=== PATIENT | male | born 1965 | race Caucasian/White ===

== ENCOUNTER 2017-05-16 13:35 | Emergency (ER) | payer BC ==
[2017-05-16 13:48] VITALS: TEMP 97.9; BMI 30.9
[2017-05-16] MEDS ORDERED: ONDANSETRON 4 MG/2 ML VIAL IVPUSH ONE (14:18)
[2017-05-16] MEDS ORDERED: diazePAM CARPU-JECT 10 MG/2 ML DISP.SYRIN IVPUSH ONE (14:20)
[2017-05-16] MEDS ORDERED: SODIUM CHLORIDE 0.9% 1000 ML INFUS.BAG IV ONE (14:22)
[2017-05-16] MEDS ORDERED: ONDANSETRON 4 MG/2 ML VIAL ONE (14:29)
[2017-05-16] MEDS ORDERED: diazePAM CARPU-JECT 10 MG/2 ML DISP.SYRIN ONE (14:29)
--- NOTE | 2017-05-16 14:36 | PDOC ---
History of Present Illness - General History Source: Patient Exam Limitations: No Limitations - History of Present Illness Initial Comments: 05/16/17 14:25 The patient is a 51 M who presents extreme dizziness secondary to vertigo. He was vomiting when I was talking to him. He could not provide a history besides the fact that he has vertigo and this feels like the vertigo that he has. <Spike Clemente - Last Filed: 05/16/17 14:43> <Harshad Moulton - Last Filed: 05/16/17 18:50> - General Chief Complaint: Lightheaded Stated Complaint: VERTIGO Time Seen by Provider: 05/16/17 14:12 Past History - Past Medical History HTN: Yes Suicide Attempt (Hx): No - Immunization History Immunization Up to Date: Yes - Psycho/Social/Smoking Cessation Hx Anxiety: No Suicidal Ideation: No Smoking Status: No Smoking History: Never smoked Have you smoked in the past 12 months: No Number of Cigarettes Smoked Daily: 0 Information on smoking cessation initiated: No Hx Alcohol Use: No Drug/Substance Use Hx: No Substance Use Type: None <Spike Clemente - Last Filed: 05/16/17 14:43> <Harshad Moulton - Last Filed: 05/16/17 18:50> - Past Medical History Allergies/Adverse Reactions: Allergies Allergy/AdvReac Type Severity Reaction Status Date / Time No Known Allergies Allergy Verified 05/16/17 13:43 Home Medications: Ambulatory Orders Topiramate [Topamax] 50 mg PO DAILY 11/29/12 Valsartan/Hydrochlorothiazide [Diovan Hct 160-12.5 mg Tablet -] 1 combo PO DAILY 11/29/12 Diazepam [Valium] 5 mg PO TID PRN #14 tablet 12/25/15 Meclizine HCl [Antivert -] 50 mg PO TID PRN #21 tablet 12/25/15 Naproxen [Naprosyn -] 500 mg PO BID #14 tablet 09/26/16 Diazepam [Valium] 2 mg PO TID PRN #60 tablet MDD 6 05/16/17 Pantoprazole Sodium 40 mg PO DAILY 05/16/17 Review of Systems - Review of Systems Able to Perform ROS?: No (vomiting) Is the patient limited Liberian proficient: No <Spike Clemente - Last Filed: 05/16/17 14:43> *Physical Exam - Vital Signs Last Vital Signs Temp Pulse Resp BP Pulse Ox 97.9 F 115 H 16 181/109 100 05/16/17 13:43 05/16/17 13:43 05/16/17 13:43 05/16/17 13:43 05/16/17 13:43 <Spike Clemente - Last Filed: 05/16/17 14:43> - Vital Signs Last Vital Signs Temp Pulse Resp BP Pulse Ox 97.9 F 93 H 20 116/60 99 05/16/17 13:43 05/16/17 17:38 05/16/17 17:38 05/16/17 17:38 05/16/17 17:38 <Harshad Moulton - Last Filed: 05/16/17 18:50> Heart Score/ECG Review - ECG Intrepretation Rhythm: Regular Rhythm - Southold Southold: Normal - QRS Widened: RBBB - ECG Impressions Ischemic Changes: No Bradycardia: No <Spike Clemente - Last Filed: 05/16/17 14:43> ED Treatment Course - LABORATORY CBC & Chemistry Diagram: 05/16/17 14:40 05/16/17 14:40 - ADDITIONAL ORDERS Additional order review: Laboratory Results 05/16/17 14:40 Sodium 142 Potassium 3.8 Chloride 111 H Carbon Dioxide 23 Anion Gap 8 BUN 17 D Creatinine 1.1 Creat Clearance w eGFR > 60 Random Glucose 131 H D Calcium 8.6 Total Bilirubin 0.3 D AST 12 L ALT 27 Alkaline Phosphatase 98 Total Protein 7.3 Albumin 3.9 05/16/17 14:40 RBC 4.75 MCV 88.7 MCHC 33.6 RDW 13.7 MPV 6.9 L - Medications Given in the ED: ED Medications Discontinued Medications Generic Name Dose Route Start Last Admin Trade Name Freq PRN Reason Stop Dose Admin Diazepam 5 mg 05/16/17 14:20 05/16/17 14:35 Valium Injection - IVPUSH 05/16/17 14:21 5 mg ONCE ONE Administration Metoclopramide HCl 10 mg 05/16/17 14:59 05/16/17 15:15 Reglan Injection - IVPUSH 05/16/17 15:00 10 mg ONCE ONE Administration Ondansetron HCl 4 mg 05/16/17 14:18 05/16/17 14:35 Zofran Injection IVPUSH 05/16/17 14:19 4 mg ONCE ONE Administration Sodium Chloride 1,000 ml 05/16/17 14:22 05/16/17 14:35 Normal Saline - IV 05/16/17 14:23 1,000 ml ONCE ONE Administration <Harshad Moulton - Last Filed: 05/16/17 18:50> *DC/Admit/Observation/Transfer <Spike Clemente - Last Filed: 05/16/17 14:43> - Discharge Dispostion Admit: No <Harshad Moulton - Last Filed: 05/16/17 18:50> Diagnosis at time of Disposition: Benign positional vertigo Qualifiers: Laterality: unspecified laterality Qualified Code(s): H81.10 - Benign paroxysmal vertigo, unspecified ear - Discharge Dispostion Disposition: HOME Condition at time of disposition: Improved - Referrals Referrals: Terry German MD [Staff Physician] - - Patient Instructions Printed Discharge Instructions: DI for Vertigo Additional Instructions: Return to the emergency department immediately with ANY new, persistent or worsening symptoms including any headache, vision changes, difficulty with speech, numbness, tingling, weakness, difficulty ambulating, fevers, chills, neck pain or any other concerns. Take your meclizine for vertigo if that does not help he may try the Valium. Do not go to work or drive while you had vertigo. You MUST call and follow up with your doctor tomorrow for further evaluation of your symptoms. Results were discussed with you. Please make sure your doctor reviews the results of your emergency evaluation. If you had any xrays during your visit, it was read preliminarily by myself, a Radiologist will review it and if there are any additional findings we will call you. Print Language: IVORIAN
[2017-05-16 14:56] LABS: MCH 29.8 pg (25.7-33.7); MCHC 33.6 g/dl (32.0-35.9); MEAN CELL VOLUME 88.7 fl (80-96); MEAN PLT VOLUME 6.9 fl (7.5-11.1); PLATELET COUNT 233 K/MM3 (134-434); RDW 13.7 % (11.9-15.9); WHITE BLOOD COUNT 10.5 K/mm3 (4.0-10.0)
[2017-05-16] MEDS ORDERED: METOCLOPRAMIDE HCL INJECTION 10 MG/2 ML VIAL IVPUSH ONE (14:59)
[2017-05-16] MEDS ORDERED: METOCLOPRAMIDE HCL INJECTION 10 MG/2 ML VIAL ONE (15:01)
--- NOTE | 2017-05-16 15:07 | PDOC ---
Attending Attestation - Resident Resident Name: Spike Clemente - ED Attending Attestation I have performed the following: I have examined & evaluated the patient, The case was reviewed & discussed with the resident, I agree w/resident's findings & plan, Exceptions are as noted - HPI HPI: 05/16/17 18:50 51y M hx of veritgo presents with severe vertigo since approximately 1 hr prior to arrival associated with nauasae and vomiting, no associated vision changes, double vision, dysarthria, numbnes, tingilng, weakness, pt does have mild headache this morning. The vetigo was very severe and worse with head movements , but improved with rest. asociated with nausea. nO associated enck pain, recent trauma. Pt notes sypmtoms similar to previous episodes but more severe. Physical Exam GENERAL: The patient is awake, alert, and fully oriented, uncomfortable appearing, intermittent vomiting/heaving HEAD: Normocephalic, atraumatic. EYES: extraocular movements intact, sclera anicteric, conjunctiva clear. ENT: Normal voice, dry mucous membranes. NECK: Normal range of motion, supple LUNGS: Breath sounds equal, clear to auscultation bilaterally. No wheezes, no rhonchi, no rales. HEART: slightly tachcyardic ABDOMEN: Soft, nontender, normoactive bowel sounds. No guarding, no rebound. . No CVA tenderness EXTREMITIES: Normal range of motion, no edema. No clubbing or cyanosis. No cords, erythema, or tenderness. PSYCH: Normal mood, normal affect. SKIN: Warm, Dry, normal turgor, NEURO: Mental status: The patient is oriented x3. Cranial nerves: Cranial nerves II through XII are intact Motor: The upper extremities are 5 over 5 grossly. The lower extremities are 5 over 5 grossly. Negative pronator drift Sensation: Sensation is intact to light touch throughout. romberg negative Cerebellar: Wofrep-cxfbje-xhmq is normal in both upper extremities. Heel-knee- montero is normal in both lower extremities. rapid alternating movements are normal. Reflexes: 2+ and symmetric in the upper and lower extremities. Gait: Normal and nonataxic pt feeling significantly improved after valium, fluid hydration ekg/labs reviewed ambulating with a normal gait will dc the pt with pmd and neuro follow up will give rx for valium and meclizine not substantially improving symptoms no work until symptoms resolved and he follows up with pmd and neurologist(dr. grissom) - Physicial Exam PE: 05/17/17 07:39 see above - Medical Decision Making 05/17/17 07:39 see above Heart Score/ECG Review - ECG Impressions Comment:: 05/16/17 18:53 Twelve-lead EKG was performed and reviewed by me. There is normal sinus rhythm with a normal rate. Rate of 89 The axis is normal. The intervals are normal. There is normal R wave progression Nonspecific T-wave inversion in lead 3
[2017-05-16 15:21] LABS: ALBUMIN 3.9 g/dl (3.4-5.0); ANION GAP 8 (8-16); CALCIUM 8.6 mg/dL (8.5-10.1); CO2 23 mmol/L (21-32); GLUCOSE,RANDOM 131 mg/dL (74-106)
[2017-05-16 15:24] LABS: ALK PHOS 98 U/L (45-117); BILIRUBIN,TOTAL 0.3 mg/dL (0.2-1.0); CREATININE 1.1 mg/dL (0.7-1.3); SGOT/AST 12 U/L (15-37); SGPT/ALT 27 U/L (12-78); TOT PROT 7.3 g/dl (6.4-8.2)
[2017-05-16 17:39] VITALS: BP 116/60; PULSE 93
--- NOTE | 2017-05-16 17:42 | EKG ---
Test Reason : Blood Pressure : / mmHG Vent. Rate : 089 BPM Atrial Rate : 089 BPM P-R Int : 172 ms QRS Dur : 094 ms QT Int : 356 ms P-R-T Axes : 053 027 006 degrees QTc Int : 433 ms NORMAL SINUS RHYTHM CANNOT RULE OUT ANTERIOR INFARCT , AGE UNDETERMINED ABNORMAL ECG WHEN COMPARED WITH ECG OF 25-DEC-2015 14:50, T WAVE VARIATION Confirmed by ELBA MONROY MD ([id number]) on 05/16/2017 5:42:16 PM Referred By: Confirmed By:ELBA MONROY MD
== END 2017-05-16 19:05 | disposition home or self-care (01) ==
LOC: JER 13:35
PROC: 3E033NZ Introduction of Analgesics, Hypnotics, Sedatives into Peripheral Vein, Percutaneous Approach (ICD-10-PCS; principal; 2017-05-16)
PROC: 3E033GC Introduction of Other Therapeutic Substance into Peripheral Vein, Percutaneous Approach (ICD-10-PCS; 2017-05-16)
PROC: 3E033GC Introduction of Other Therapeutic Substance into Peripheral Vein, Percutaneous Approach (ICD-10-PCS; 2017-05-16)
DX: H81.10 Benign paroxysmal vertigo, unspecified ear (principal)
CPT/HCPCS: 36415; 80053; 85027; 93005; 93010; 99283-25

== ENCOUNTER 2017-06-14 08:44 | Emergency (ER) | payer BC ==
[2017-06-14 08:52] VITALS: BP 135/90; PULSE 60; TEMP 97.5; BMI 31.6
--- NOTE | 2017-06-14 09:09 | PDOC ---
History of Present Illness - General Chief Complaint: Pain Stated Complaint: ABD PAIN Time Seen by Provider: 06/14/17 08:56 - History of Present Illness Initial Comments: 06/14/17 09:08 Pt. is a 51 y/o male with PMH of HTN, vertigo d/t BPPV who presents to the ED c/ o belly button pain. Patient states that his pain started this morning after eating a bran muffin. He states that the pain was nagging and he thought he had gas so he tried to use the restroom. Upon bearing down the pain increased significantly to a 10 out of 10. That he noticed his belly button bulging for approximately 2-3 days. No history of hernia. Denies fevers, chills, malaise, chest pain, shortness of breath, lightheadedness, syncope, nausea, vomiting, diarrhea, constipation, frequency, urgency and hematuria. Past History - Travel Traveled outside of the country in the last 30 days: No Close contact w/someone who was outside of country & ill: No - Past Medical History Allergies/Adverse Reactions: Allergies Allergy/AdvReac Type Severity Reaction Status Date / Time No Known Allergies Allergy Verified 06/14/17 08:52 Home Medications: Ambulatory Orders Topiramate [Topamax] 50 mg PO DAILY 11/29/12 Valsartan/Hydrochlorothiazide [Diovan Hct 160-12.5 mg Tablet -] 1 combo PO DAILY 11/29/12 Meclizine HCl [Antivert -] 50 mg PO TID PRN #21 tablet 12/25/15 Naproxen [Naprosyn -] 500 mg PO BID #14 tablet 09/26/16 Diazepam [Valium] 2 mg PO TID PRN #60 tablet MDD 6 05/16/17 Pantoprazole Sodium 40 mg PO DAILY 05/16/17 Tramadol HCl [Ultram -] 50 mg PO Q6H #5 tablet MDD 2 06/14/17 HTN: Yes Suicide Attempt (Hx): No - Immunization History Immunization Up to Date: Yes - Psycho/Social/Smoking Cessation Hx Anxiety: No Suicidal Ideation: No Smoking Status: No Smoking History: Never smoked Have you smoked in the past 12 months: No Number of Cigarettes Smoked Daily: 0 Information on smoking cessation initiated: No Hx Alcohol Use: No Drug/Substance Use Hx: No Substance Use Type: None Review of Systems - Review of Systems Able to Perform ROS?: Yes Is the patient limited Cymraes proficient: No Constitutional: Yes: Chills. No: Fever, Malaise, Weakness Respiratory: No: Cough, Shortness of Breath, Wheezing Cardiac (ROS): No: Chest Pain, Edema, Lightheadedness, Palpitations, Syncope ABD/GI: Yes: Other (Belly button pain). No: Constipated, Diarrhea, Nausea, Vomiting : No: Burning, Dysuria, Discharge, Frequency, Flank Pain, Hematuria Musculoskeletal: No: Back Pain Neurological: No: Numbness, Paresthesia, Weakness, Dizziness All Other Systems: Reviewed and Negative *Physical Exam - Vital Signs Last Vital Signs Temp Pulse Resp BP Pulse Ox 97.5 F L 60 18 135/90 97 06/14/17 08:50 06/14/17 08:50 06/14/17 08:50 06/14/17 08:50 06/14/17 08:50 - Physical Exam Comments: 06/14/17 09:12 GENERAL: Well developed, well nourished. Awake and alert. No acute distress. HEENT: Normocephalic, atraumatic. PERRLA, EOMI. No conjunctival pallor. Sclera are non- icteric. Moist mucous membranes. Oropharynx is clear. NECK: Supple. Full ROM. No JVD. Carotid pulses 2+ and symmetric, without bruits. No thyromegaly. No lymphadenopathy. CARDIOVASCULAR: Regular rate and rhythm. No murmurs, rubs, or gallops. Distal pulses are 2+ and symmetric. PULMONARY: No evidence of respiratory distress. Lungs clear to auscultation bilaterally. No wheezing, rales or rhonchi. ABDOMINAL: TTP of the umbilical region. Soft, non-reducible umbilical hernia measuring approximately 3cm around. No skin changes. Soft. Non-distended. No rebound or guarding. No organomegaly. Normoactive bowel sounds. MUSCULOSKELETAL Normal range of motion at all joints. No bony deformities or tenderness. No CVA tenderness. EXTREMITIES: No cyanosis. No clubbing. No edema. No calf tenderness. SKIN: Warm and dry. Normal capillary refill. No rashes. No jaundice. NEUROLOGICAL: Alert, awake, appropriate. Cranial nerves 2-12 intact. No deficits to light touch and temperature in face, upper extremities and lower extremities. No motor deficits in the in face, upper extremities and lower extremities. Normoreflexic in the upper and lower extremities. Normal speech. Toes are down- going bilaterally. Gait is normal without ataxia. PSYCHIATRIC: Cooperative. Good eye contact. Appropriate mood and affect. ED Treatment Course - LABORATORY CBC & Chemistry Diagram: 06/14/17 09:40 06/14/17 09:40 Medical Decision Making - Medical Decision Making 06/14/17 09:44 Patient is a 51-year-old male past medical history of hypertension, vertigo who presents to emergency department today complaining of umbilical pain. Given history and physical, most likely an umbilical hernia. Was unable to reduce the hernia in the emergency department. Will do workup for new hernia. 1. CBC, CMP, PT/INR, 2. CT abdomen and pelvis with contrast 3. pain control morphine, Zofran 4. reevaluate 06/14/17 12:42 Pt. reports relief with morphine and states that the hernia feels smaller. CT Scan shows: fat containing umbilical hernia with some necrosis of the fat; could be caused by trying to reduce the hernia. Clinically pt. abdomen is benign. Feeling much better with morphine. Lab work is normal. Will send home at this time with Surgical consult, pain control and weight lift restriction. Pt. understands all discharge instructions and all questions were answered at this time. *DC/Admit/Observation/Transfer Diagnosis at time of Disposition: Incarcerated umbilical hernia - Discharge Dispostion Disposition: HOME Condition at time of disposition: Improved Admit: No - Prescriptions Prescriptions: Tramadol HCl [Ultram -] 50 mg PO Q6H #5 tablet MDD 2 - Referrals Referrals: Terry German MD [Primary Care Provider] - Missael Zapata MD [Staff Physician] - - Patient Instructions Printed Discharge Instructions: Abdominal Hernia Additional Instructions: You have a fat containing hernia as diagnosed on your CT scan today. You may take tramadol as needed for severe pain. Do not drive after taking this medication as it may make you sleepy. Avoid activites that increase pressure in your stomach including heavy lifting, and straining to have a bowel movement. You may take Miralax over the counter to help with stool softening. Follow up with your primary care doctor. You were also given a referral for a surgeon Dr. Missael Dixon. Call the office tomorrow. Return to the ED if your pain gets worse, nausea, vomiting, or any changes in your symptoms. - Post Discharge Activity Work/School Note: Back to Work
[2017-06-14] MEDS ORDERED: morphine CARPU-JECT 4 MG/1 ML DISP.SYRIN IVPUSH ONE (09:38)
[2017-06-14] MEDS ORDERED: ONDANSETRON 4 MG/2 ML VIAL IVPUSH ONE (09:38)
[2017-06-14] MEDS ORDERED: ONDANSETRON 4 MG/2 ML VIAL ONE (09:43)
[2017-06-14] MEDS ORDERED: morphine CARPU-JECT 10 MG/1 ML DISP.SYRIN ONE (09:43)
[2017-06-14 10:11] LABS: BASOPHIL 0.5 % (0-2.0); EOSINOPHIL 0.6 % (0-4.5); MCH 29.7 pg (25.7-33.7); MEAN CELL VOLUME 90.2 fl (80-96); MEAN PLT VOLUME 6.6 fl (7.5-11.1); NEUTROPHILS 81.5 % (42.8-82.8); PLATELET COUNT 204 K/MM3 (134-434); RDW 13.5 % (11.9-15.9); WHITE BLOOD COUNT 8.6 K/mm3 (4.0-10.0)
[2017-06-14 10:20] LABS: INR 0.99 (0.82-1.09); PROTHROMBIN TIME (PATIENT) 10.9 SEC (9.98-11.88)
[2017-06-14 10:24] LABS: ANION GAP 8 (8-16); BILIRUBIN,TOTAL 0.6 mg/dL (0.2-1.0); CALCIUM 8.7 mg/dL (8.5-10.1); CO2 23 mmol/L (21-32); GLUCOSE,RANDOM 115 mg/dL (74-106); SGPT/ALT 27 U/L (12-78)
[2017-06-14 10:27] LABS: ALK PHOS 96 U/L (45-117); CREATININE 1.1 mg/dL (0.7-1.3); SGOT/AST 15 U/L (15-37); TOT PROT 7.1 g/dl (6.4-8.2)
--- NOTE | 2017-06-14 10:33 | PDOC ---
*Physical Exam - Vital Signs Last Vital Signs Temp Pulse Resp BP Pulse Ox 97.5 F L 60 18 135/90 97 06/14/17 08:50 06/14/17 08:50 06/14/17 08:50 06/14/17 08:50 06/14/17 08:50 - Physical Exam Comments: 06/14/17 10:31 Vital signs stable, well-appearing Abdomen soft/nondistended/nontender. Umbilical hernia now reduced, palpable defect but no longer incarcerated. Bowel sounds normal. ED Treatment Course - LABORATORY CBC & Chemistry Diagram: 06/14/17 09:40 06/14/17 09:40 - ADDITIONAL ORDERS Additional order review: Laboratory Results 06/14/17 09:40 Sodium 142 Potassium 3.9 Chloride 111 H Carbon Dioxide 23 Anion Gap 8 BUN 23 H D Creatinine 1.1 Creat Clearance w eGFR > 60 Random Glucose 115 H Calcium 8.7 Total Bilirubin 0.6 D AST 15 D ALT 27 Alkaline Phosphatase 96 Total Protein 7.1 Albumin 4.0 06/14/17 09:40 RBC 4.79 MCV 90.2 MCHC 33.0 RDW 13.5 MPV 6.6 L Neutrophils % 81.5 Lymphocytes % 12.5 D Monocytes % 4.9 Eosinophils % 0.6 D Basophils % 0.5 - Medications Given in the ED: ED Medications Discontinued Medications Generic Name Dose Route Start Last Admin Trade Name Davidq PRN Reason Stop Dose Admin Morphine Sulfate 4 mg 06/14/17 09:38 06/14/17 10:00 Morphine Injection - IVPUSH 06/14/17 09:39 4 mg ONCE ONE Administration Ondansetron HCl 4 mg 06/14/17 09:38 06/14/17 10:00 Zofran Injection IVPUSH 06/14/17 09:39 4 mg ONCE ONE Administration Medical Decision Making - Medical Decision Making 06/14/17 10:31 Patient seen and evaluated with the nurse practitioner. I agree with the overall evaluation, assessment, and management with the following summary of visit: 51-year-old male with no significant past medical history or surgical history presents with incarcerated hernia, now spontaneously reduced after morphine and lying on stretcher. Abdomen was benign, no obstructive symptoms. Check labs and CTAP given duration of incarceration Remains asymptomatic with normal exam and negative workup, can refer for outpatient general surgery *DC/Admit/Observation/Transfer Diagnosis at time of Disposition: Irreducible umbilical hernia - Discharge Dispostion Condition at time of disposition: Improved
== END 2017-06-14 13:53 | disposition home or self-care (01) ==
LOC: JER 08:44
PROC: 3E033GC Introduction of Other Therapeutic Substance into Peripheral Vein, Percutaneous Approach (ICD-10-PCS; principal; 2017-06-14)
PROC: 3E033NZ Introduction of Analgesics, Hypnotics, Sedatives into Peripheral Vein, Percutaneous Approach (ICD-10-PCS; 2017-06-14)
DX: K42.9 Umbilical hernia without obstruction or gangrene (principal); I10 Essential (primary) hypertension
CPT/HCPCS: 36415; 74177-TC; 80053; 85025; 85610; 99283-25

== ENCOUNTER 2017-06-22 18:07 | Emergency (ER) | payer BC ==
[2017-06-22 18:15] VITALS: BP 160/98; PULSE 83; TEMP 98; BMI 31.6
[2017-06-22] MEDS ORDERED: MECLIZINE HCL 25 MG TABLET (FP) PO ONE (19:05)
[2017-06-22] MEDS ORDERED: diazePAM 5 MG TABLET PO ONE (19:06)
[2017-06-22] MEDS ORDERED: SODIUM CHLORIDE 1,000 ML IV STA (19:07)
[2017-06-22] MEDS ORDERED: ONDANSETRON 4 MG/2 ML VIAL IVPUSH ONE (19:07)
[2017-06-22] MEDS ORDERED: MECLIZINE HCL 25 MG TABLET (FP) ONE ×2 (19:13→19:34)
[2017-06-22] MEDS ORDERED: diazePAM 5 MG TABLET ONE ×2 (19:13→19:34)
--- NOTE | 2017-06-22 19:15 | PDOC ---
History of Present Illness - General Chief Complaint: Lightheaded Stated Complaint: DIZZINESS Time Seen by Provider: 06/22/17 18:47 History Source: Patient Exam Limitations: No Limitations - History of Present Illness Initial Comments: This is a 51 yo male with h/o BPPV and umbilical hernia (to be repaired on ) who presents with vertigo typical of his normal flares. He notes room- spinning dizziness and nausea. He took meclizine 25 mg PO at home without relief. He has not vomited yet, but expresses concern that his nausea is getting worse and if he does vomit, it frequently causes his umbilical hernia to come out. He denies any recent headache, cough, sore throat, runny nose, chest pain, shortness of breath, fever, chills, or other symptoms. He has never had a head CT for this. He was first diagnosed with vertigo four years ago after sneezing very forcefully (he was told he had whiplash). Past History - Past Medical History Allergies/Adverse Reactions: Allergies Allergy/AdvReac Type Severity Reaction Status Date / Time No Known Allergies Allergy Verified 06/22/17 18:15 Home Medications: Ambulatory Orders Topiramate [Topamax] 50 mg PO DAILY 11/29/12 Valsartan/Hydrochlorothiazide [Diovan Hct 160-12.5 mg Tablet -] 1 combo PO DAILY 11/29/12 Meclizine HCl [Antivert -] 50 mg PO TID PRN #21 tablet 12/25/15 Naproxen [Naprosyn -] 500 mg PO BID #14 tablet 09/26/16 Diazepam [Valium] 2 mg PO TID PRN #60 tablet MDD 6 05/16/17 Pantoprazole Sodium 40 mg PO DAILY 05/16/17 Tramadol HCl [Ultram -] 50 mg PO Q6H #5 tablet MDD 2 06/14/17 GI Disorders: Yes HTN: Yes Suicide Attempt (Hx): No Other medical history: VERTIGO, MIGRAINES - Immunization History Immunization Up to Date: Yes - Psycho/Social/Smoking Cessation Hx Anxiety: No Suicidal Ideation: No Smoking Status: No Smoking History: Never smoked Have you smoked in the past 12 months: No Number of Cigarettes Smoked Daily: 0 Information on smoking cessation initiated: No Hx Alcohol Use: No Drug/Substance Use Hx: No Substance Use Type: None *Physical Exam - Vital Signs Last Vital Signs Temp Pulse Resp BP Pulse Ox 98 F 83 18 160/98 98 06/22/17 18:12 06/22/17 18:12 06/22/17 18:12 06/22/17 18:12 06/22/17 18:12 Medical Decision Making - Medical Decision Making This is a 51 YOM with h/o BPPV who presents with vertigo flare same as prior. Pt states incident was preceded by washing his hair and shaking his head too hard. Has previously gotten relief with PO valium, meclizine, Zofran here in the ED. States IVF usually helps significantly too. DDX includes BPPV, meniere's, post-viral, or central vertigo. Pt has never been worked up for his vertigo per his own report. Head CT is offered to the patient via shared decision making but 06/22/17 19:40 Pt feeling much better after valium, meclizine, and zofran. He has been able to orally hydrate thus far and will try to avoid IV placement for IVF. *DC/Admit/Observation/Transfer Diagnosis at time of Disposition: Vertigo - Discharge Dispostion Disposition: HOME Condition at time of disposition: Stable Admit: No - Patient Instructions Printed Discharge Instructions: DI for Benign Paroxysmal Positional Vertigo Additional Instructions: You were seen in the emergency room today for vertigo. We gave you three types of pills: Valium, Meclizine, and Zofran. These started working for you, especially after drinking water and eating a little bit. We are comfortable with sending you home tonight because your symptoms are better. Please follow up with Neurology after your upcoming hernia surgery. We are sending an e- prescription for Valium to your pharmacy. Please take this and 50 mg of meclizine the next time you get vertigo and see if this works. You can always return to the emergency room for new or worsening symptoms like headache or vomiting that you can't control. Be well!
[2017-06-22] MEDS ORDERED: ONDANSETRON *ODT* 4 MG TABLET SL ONE (19:16)
[2017-06-22] MEDS ORDERED: ONDANSETRON *ODT* 4 MG TABLET ONE (19:17)
--- NOTE | 2017-06-22 19:22 | PDOC ---
Attending Attestation - Resident Resident Name: MalickMisty - ED Attending Attestation I have performed the following: I have examined & evaluated the patient, The case was reviewed & discussed with the resident, I agree w/resident's findings & plan, Exceptions are as noted - HPI HPI: 06/22/17 19:22 This is a 51 yo M with a history of BPPV Pt states that he has had this diagnosis for the past 4 years, began after he sneezed forcefully Pt states that he has used Meclizine in the past, tried it this time but it did not improve his symptoms No headache No fevers or chills No nausea or vomiting - Physicial Exam PE: 06/22/17 19:29 NEURO: Mental status: The patient is oriented x3. Cranial nerves: Cranial nerves II through XII are intact Motor: The upper extremities are 5 over 5 in all muscle groups. The lower extremities are 5 over 5 in all muscle groups. Sensation: Sensation is intact to light touch throughout. Cerebellar: Bsajgg-orwrxm-sfes is normal in both upper extremities. Heel-knee- montero is normal in both lower extremities. Gait: Normal. - Medical Decision Making 06/22/17 19:30 Will give Valium, IVF, Zofran Will re assess ? CT 06/22/17 20:02 Pt feels better Will discharge to home
== END 2017-06-22 20:08 | disposition home or self-care (01) ==
LOC: JER 18:07
DX: H81.10 Benign paroxysmal vertigo, unspecified ear (principal); I10 Essential (primary) hypertension; G43.909 Migraine, unspecified, not intractable, without status migrainosus
CPT/HCPCS: 99282-25

== ENCOUNTER 2017-07-04 06:17 | Day surgery (SDC) | payer BC ==
[2017-06-30 15:26] VITALS: BMI 32.5
[~2017-07-04 06:17] MED LIST: BUPIVACAINE HCL/PF 0.5% (5MG/ML) 10 ML VIAL IJ ONE; LIDOCAINE HCL 1%, 10 MG/ML (20ML VIAL) INF ONE
[2017-07-04] MEDS ORDERED: ACETAMINOPHEN INJECTION 100 ML IVPB ONE (07:17)
[2017-07-04] MEDS ORDERED: IBUPROFEN 800 MG/8 ML IJ IVPB ONE (07:17)
[2017-07-04] MEDS ORDERED: BUPIVACAINE HCL/PF 0.5% (5MG/ML) 10 ML VIAL ONE (07:23)
[2017-07-04] MEDS ORDERED: MIDAZOLAM HCL 2 MG/2 ML SINGLE DOSE VIAL ONE ×2 (07:25)
[2017-07-04] MEDS ORDERED: DESFLURANE GAS 240 ML BOTTLE IH ONE (07:42)
[2017-07-04] MEDS ORDERED: PROPOFOL 20 ML ONE ×2 (07:48)
[2017-07-04] MEDS ORDERED: SUCCINYLCHOLINE CHLORIDE 200 MG/10 ML VIAL ONE (07:48)
[2017-07-04] MEDS ORDERED: ROCURONIUM BROMIDE 50 MG/5 ML VIAL ONE ×2 (07:49)
[2017-07-04] MEDS ORDERED: ceFAZolin SODIUM 1 GM VIAL ONE (07:50)
[2017-07-04] MEDS ORDERED: SODIUM CHLORIDE 0.9% P/F 10 ML VIAL IJ ONE (07:50)
[2017-07-04] MEDS ORDERED: DEXAMETHASONE SOD PHOSPHATE 4 MG/1 ML VIAL ONE (07:50)
--- NOTE | 2017-07-04 08:04 | HP ---
History & Physical Update - History History: No Change - Physical Physical: No Change - Assessment Assessment: No Change - Plan Plan: No Change (Repair umbilical hernia; r/b/t/a/'s d/w the patient pre-op in the office; recurrence d/w him as well.)
[2017-07-04] MEDS ORDERED: LIDOCAINE HCL 1%, 10 MG/ML (20ML VIAL) ONE (08:13)
[2017-07-04] MEDS ORDERED: GLYCOPYRROLATE 0.2 MG/1 ML VIAL ONE (08:53)
[2017-07-04] MEDS ORDERED: NEOSTIGMINE METHYLSULFATE 0.5 MG/ML - 10 ML MDV ONE (08:53)
[2017-07-04] MEDS ORDERED: BUPIVACAINE HCL/PF 0.5% (5MG/ML) 10 ML VIAL IJ ONE (09:15)
[2017-07-04] MEDS ORDERED: LIDOCAINE HCL 1%, 10 MG/ML (20ML VIAL) INF ONE (09:15)
[2017-07-04] MEDS ORDERED: LIDOCAINE HCL/PF 2% SDV 5ML VIAL ONE (09:23)
[2017-07-04] MEDS ORDERED: ONDANSETRON 4 MG/2 ML VIAL IVPUSH PRN (09:49)
[2017-07-04] MEDS ORDERED: PROMETHAZINE HCL 25 MG/1 ML VIAL IVPUSH PRN (09:49)
[2017-07-04] MEDS ORDERED: oxyCODONE HCL 5 MG TABLET PO PRN (09:49)
--- NOTE | 2017-07-04 09:53 | OP ---
Operative Note - Note: Operative Date: 07/04/17 Pre-Operative Diagnosis: umbilical hernia Operation: repair umbilical hernia Findings: 2.0 cm. defect at the umbilicus containing pre-peritoneal fat. Surgeon: Missael Zapata Anesthesiologist/SERVICE CENTER MANAGER: Osman Guerra Anesthesia: General Specimens Removed: hernia sac and preperitoneal fat Estimated Blood Loss (mls): 10
[2017-07-04] MEDS ORDERED: LACTATED RINGERS SOLUTION 1,000 ML IV SCH (10:00)
[2017-07-04 10:52] VITALS: TEMP 97.7
[2017-07-04] MEDS ORDERED: oxyCODONE HCL 5 MG TABLET ONE (11:29)
[2017-07-04 12:26] VITALS: BP 129/81; PULSE 79
--- NOTE | 2017-07-05 13:21 | PATH ---
Surgical Pathology Report Patient Name: KANNAN [facility]. Rec. #: [id number] /Age/Gender: 1965 (Age: 51) / M Account: [id number] Location: [facility] SURGICAL Taken: 07/04/2017 Received: 07/04/2017 Reported: 07/05/2017 Physicians: Missael Zapata MD Specimen(s) Received HERNIA SAC Clinical History Umbilical hernia Final Diagnosis HERNIA SAC, UMBILICAL HERNIA REPAIR: BENIGN FOCALLY MESOTHELIAL LINED FIBROMEMBRANOUS AND FIBROFATTY TISSUE WITH VASCULAR CONGESTION AND FOCAL HEMORRHAGE CONSISTENT WITH HERNIA SAC. Electronically Signed Geovany Bustillos M.D. Gross Description Received in formalin labeled "hernia sac" is a 4.4 x 3.6 x 2.0 cm ricci-pink, irregular portion of fibromembranous tissue with attached fat, consistent with a hernia sac. Tailings Man sections are submitted in one cassette. /07/04/2017 [facility]07/04/2017
--- NOTE | 2017-07-06 13:40 | OP ---
DATE OF OPERATION: 07/04/2017 PREOPERATIVE DIAGNOSIS: Umbilical hernia. POSTOPERATIVE DIAGNOSIS: Umbilical hernia. PROCEDURE: Repair of umbilical hernia. SURGEON: Missael Zapata MD ANESTHESIA: General. OPERATIVE FINDINGS: There was a 2-cm defect at the umbilicus containing non-incarcerated preperitoneal fat. The rest of the findings were unremarkable. DESCRIPTION OF PROCEDURE: The patient was placed on the operating table in supine position, and after the induction of general anesthesia, the patients abdomen was prepped with ChloraPrep and draped in sterile fashion. A time-out was taken, and an infraumbilical incision was made from the 3 to 9 o'clock position using the scalpel. This was taken down through skin and subcutaneous tissues to the abdominal wall. The umbilical stalk was then bluntly encircled, and the umbilicus dissected off the sac. The sac was then entered, and redundant sac and preperitoneal fat were excised using electrocautery and sent for pathological examination. The undersurface of the abdominal wall was freed of any adhesions, and then, the hernia was repaired using multiple 0 Prolene horizontal mattress sutures. Hemostasis was checked for and noted to be good, and then, the wound was copiously irrigated with sterile saline. The operative field was infiltrated with 1% Xylocaine and 0.5% Marcaine in equal concentration. Hemostasis was again verified, and then, the umbilicus was tacked down to the abdominal wall with interrupted 2-0 Vicryl, and the deep dermis reapproximated with interrupted 3-0 Vicryl, and the skin edges with surgical simon. Telfa and dry sterile dressings were placed, and the procedure was terminated at this point, and the patient roused from general anesthesia and transferred to the post-anesthesia care unit in stable condition, awake and alert. ESTIMATED BLOOD LOSS: 10 mL. REPLACEMENTS: Crystalloid. DRAINS: None. SPECIMENS: Hernia sac and preperitoneal fat to Pathology. I, Missael Zapata, was physically present in the operating room from the time the patient was placed on the operating table until he was transferred to the post-anesthesia care unit in my accompaniment. MD ANCA Aguirre/[id number]
== END 2017-07-04 12:28 | disposition home or self-care (01) ==
LOC: JASU-SURG 06:17
PROVIDERS: ATTEND Surgery
PROC: 0WQF0ZZ Repair Abdominal Wall, Open Approach (ICD-10-PCS; principal; 2017-07-04 08:00)
DX: K42.9 Umbilical hernia without obstruction or gangrene (principal)
CPT/HCPCS: 88302-TC; 94010; 94760

== ENCOUNTER 2018-02-25 08:06 | Emergency (ER) | payer BC ==
[2018-02-25 08:13] VITALS: BP 126/82; PULSE 96; TEMP 97.8; BMI 34.2
--- NOTE | 2018-02-25 08:26 | PDOC ---
History of Present Illness - General Chief Complaint: Lightheaded Stated Complaint: RINGING IN LEFT EAR, DIZZINESS Time Seen by Provider: 02/25/18 08:25 - History of Present Illness Initial Comments: 02/25/18 08:31 Mr. Young is a 52 yo male w/ pmh of BPPV and umbilical hernia (repaired) who presents w/ complaints of dizziness since Tuesday. He reports this started after he was on [place] and has persisted despite attempting to take 1/2 of his usual meclizine dose at 0700 this morning. He has also taken a 2mg diazepam as well for associated nausea. He has no other complaints at this time. Patient followed by Dr. Sweet for this problem. The patient denies chest pain, shortness of breath,and headache. Denies fever, chills, nausea, vomit, diarrhea and constipation. Denies dysuria, frequency, urgency and hematuria. Allergies: NKDA Past History - Past Medical History Allergies/Adverse Reactions: Allergies Allergy/AdvReac Type Severity Reaction Status Date / Time No Known Allergies Allergy Verified 02/25/18 08:09 Home Medications: Ambulatory Orders Topiramate [Topamax] 50 mg PO HS 11/29/12 Meclizine HCl [Antivert -] 50 mg PO TID PRN #21 tablet 12/25/15 Hydrochlorothiazide [Hctz -] 25 mg PO DAILY 06/30/17 Pantoprazole Sodium [Protonix] 40 mg PO HS 06/30/17 Valsartan [Diovan] 80 mg PO HS 06/30/17 Acetaminophen W/ Codeine #3 [Tylenol # 3 -] 1 tab PO Q4H #30 tablet MDD 6 Diazepam [Valium] 2 mg PO PRN PRN 07/04/17 Ondansetron [Zofran *Odt*] 8 mg SL BID PRN #10 od.tablet 02/25/18 Anemia: No Asthma: Yes Cancer: No Cardiac Disorders: No CVA: No COPD: No CHF: No Dementia: No Diabetes: No GI Disorders: Yes Disorders: No HTN: Yes Hypercholesterolemia: No Liver Disease: No Seizures: No Thyroid Disease: No Other medical history: migraines,miniere's disease - Immunization History Immunization Up to Date: Yes - Suicide/Smoking/Psychosocial Hx Smoking Status: No Smoking History: Never smoked Have you smoked in the past 12 months: No Number of Cigarettes Smoked Daily: 0 Information on smoking cessation initiated: No Hx Alcohol Use: No Drug/Substance Use Hx: No Substance Use Type: None Hx Substance Use Treatment: No Review of Systems - Review of Systems Comments:: 02/25/18 09:15 GENERAL/CONSTITUTIONAL: No fever or chills. No weakness. HEAD, EYES, EARS, NOSE AND THROAT: No change in vision. No ear pain or discharge. No sore throat. CARDIOVASCULAR: No chest pain or shortness of breath RESPIRATORY: No cough, wheezing, or hemoptysis. GASTROINTESTINAL: No nausea, vomiting, diarrhea or constipation. GENITOURINARY: No dysuria, frequency, or change in urination. MUSCULOSKELETAL: No joint or muscle swelling or pain. No neck or back pain. SKIN: No rash NEUROLOGIC: +Vertigo as described. No headache, loss of consciousness, or change in strength/sensation. ENDOCRINE: No increased thirst. No abnormal weight change HEMATOLOGIC/LYMPHATIC: No anemia, easy bleeding, or history of blood clots. ALLERGIC/IMMUNOLOGIC: No hives or skin allergy. *Physical Exam - Vital Signs Last Vital Signs Temp Pulse Resp BP Pulse Ox 97.8 F 96 H 18 126/82 100 02/25/18 08:10 02/25/18 08:10 02/25/18 08:10 02/25/18 08:10 02/25/18 08:10 - Physical Exam Comments: 02/25/18 09:15 GENERAL: Awake, alert, and fully oriented, in no acute distress HEAD: No signs of trauma, normocephalic, atraumatic EYES: PERRLA, EOMI, sclera anicteric, conjunctiva clear ENT: Auricles normal inspection, hearing grossly normal, nares patent, oropharynx clear without exudates. Moist mucosa NECK: Normal ROM, supple, no lymphadenopathy, JVD, or masses LUNGS: No distress, speaks full sentences, clear to auscultation bilaterally HEART: Regular rate and rhythm, normal S1 and S2, no murmurs, rubs or gallops, peripheral pulses normal and equal bilaterally. ABDOMEN: Soft, nontender, normoactive bowel sounds. No guarding, no rebound. No masses EXTREMITIES: Normal inspection, Normal range of motion, no edema. No clubbing or cyanosis. NEUROLOGICAL: Cranial nerves II through XII grossly intact. Normal speech, normal gait, no focal sensorimotor deficits SKIN: Warm, Dry, normal turgor, no rashes or lesions noted. ED Treatment Course - LABORATORY CBC & Chemistry Diagram: 02/25/18 09:25 02/25/18 09:25 Medical Decision Making - Medical Decision Making 02/25/18 09:44 Mr. Young is a 52 yo male w/ pmh as described who presents for evaluation of vertigo. Meclizine, zofran, IV NS, ativan, and reglan given for symptomatic relief. CBC/CMP sent to r/o acute infectious process or electrolyte abnormality. 02/25/18 11:55 Patient reporting relief from symptoms after additional 1/2 mg of ativan. Patient observed to ambulate w/out difficulty and would like to go home. Discharging w/ instructions to f/u with Neurologist this week for further evaluation. Sending Rx for zofran for additional symptomatic relief. Patient verbalized understanding and agreement and will comply. *DC/Admit/Observation/Transfer Diagnosis at time of Disposition: Benign positional vertigo Qualifiers: Laterality: unspecified laterality Qualified Code(s): H81.10 - Benign paroxysmal vertigo, unspecified ear - Discharge Dispostion Disposition: HOME - Prescriptions Prescriptions: Ondansetron [Zofran *Odt*] 8 mg SL BID PRN #10 od.tablet PRN Reason: Nausea - Referrals Referrals: Donovan Sweet MD [Staff Physician] - - Patient Instructions Printed Discharge Instructions: DI for Meniere's Disease Additional Instructions: Please return if any pain, fever, chills, or other concerning symptoms. Follow- up with Neurology later this week as discussed for further evaluation. - Post Discharge Activity
[2018-02-25] MEDS ORDERED: SODIUM CHLORIDE 1,000 ML IV STA (09:05)
[2018-02-25] MEDS ORDERED: ONDANSETRON 4 MG/2 ML VIAL IVPUSH ONE (09:05)
[2018-02-25] MEDS ORDERED: MECLIZINE HCL 25 MG TABLET (FP) PO ONE (09:05)
[2018-02-25] MEDS ORDERED: MECLIZINE HCL 25 MG TABLET (FP) ONE (09:16)
[2018-02-25] MEDS ORDERED: ONDANSETRON 4 MG/2 ML VIAL ONE (09:16)
[2018-02-25] MEDS ORDERED: METOCLOPRAMIDE HCL INJECTION 10 MG/2 ML VIAL IVPB ONE (09:29)
[2018-02-25] MEDS ORDERED: METOCLOPRAMIDE HCL INJECTION 10 MG/2 ML VIAL ONE (09:31)
[2018-02-25 09:34] LABS: EOS % 0.6 % (0-4.5); HEMATOCRIT 44.4 % (35.4-49); MEAN CELL VOLUME 88.8 fl (80-96)
[2018-02-25 09:36] LABS: BASO % 0.5 % (0-2.0); HEMOGLOBIN 15.3 GM/dL (11.7-16.9); MCH 30.6 pg (25.7-33.7); MCHC 34.5 g/dl (32.0-35.9); MEAN PLT VOLUME 6.7 fl (7.5-11.1); MONO % 5.7 % (3.8-10.2); NEUT % 80.2 % (42.8-82.8); PLATELET COUNT 226 K/MM3 (134-434); WHITE BLOOD COUNT 9.3 K/mm3 (4.0-10.0)
[2018-02-25 09:59] LABS: ALBUMIN 4.1 g/dl (3.4-5.0); ANION GAP 8 (8-16); BILIRUBIN,TOTAL 0.3 mg/dL (0.2-1.0); BLOOD UREA NITROGEN 24 mg/dL (7-18); CALCIUM 8.6 mg/dL (8.5-10.1); CHLORIDE 106 mmol/L (98-107); CO2 25 mmol/L (21-32); CREATININE 1.2 mg/dL (0.7-1.3); GLUCOSE,RANDOM 109 mg/dL (74-106); POTASSIUM 3.9 mmol/L (3.5-5.1); SGOT/AST 15 U/L (15-37); SGPT/ALT 28 U/L (12-78); SODIUM 139 mmol/L (136-145); TOT PROT 7.8 g/dl (6.4-8.2)
[2018-02-25 10:00] LABS: ALK PHOS 89 U/L (45-117)
--- NOTE | 2018-02-25 10:19 | PDOC ---
Attending Attestation - Resident Resident Name: Mike Boucher - ED Attending Attestation I have performed the following: I have examined & evaluated the patient, The case was reviewed & discussed with the resident, I agree w/resident's findings & plan, Exceptions are as noted - HPI HPI: 02/25/18 10:19 The patient is a 52 year old male with past medical history of umbilical hernia , meniere's disease who complaints of room spinning dizziness for the past few days ever since being on his boat. He reports taking a dose of meclizine this morning as well as PO valium without any relief. REports he feels like everything is spinning. He reports associated nausea but denies any vomiting. Reports this feels like his meneire's disease exacerbations. +associated L ear ringing. He denies any headache, numbness or weakness. He denies any LOC. Denies any fevers, chills, cough, SOB, CP, or urinary symptoms. - Physicial Exam PE: 02/25/18 10:19 GENERAL: Awake, alert, and fully oriented, appears uncomfortable HEAD: No signs of trauma EYES: PERRLA, EOMI, sclera anicteric, conjunctiva clear. + horizontal nystagmus on L gaze, which appears to make symptoms worse. ENT: Auricles normal inspection, hearing grossly normal, nares patent, oropharynx clear without exudates. Moist mucosa NECK: Normal ROM, supple, no lymphadenopathy, JVD, or masses LUNGS: Breath sounds equal, clear to auscultation bilaterally. No wheezes, and no crackles HEART: Regular rate and rhythm, normal S1 and S2, no murmurs, rubs or gallops ABDOMEN: Soft, nontender, normoactive bowel sounds. No guarding, no rebound. No masses EXTREMITIES: Normal range of motion, no edema. No clubbing or cyanosis. No cords, erythema, or tenderness NEUROLOGICAL: Normal speech, cranial nerves intact, negative pronator drift, 5/ 5 strength in all 4 extremities, normal sensation to light touch in all 4 extremities, normal cerebellar exam, normal gait, normal reflexes and tone SKIN: Warm, Dry, normal turgor, no rashes or lesions noted. - Medical Decision Making 02/25/18 10:23 52-year-old male with a history of Mnire's disease presents to the emergency department with vertiginous symptoms associated with left tinnitus after riding on a boat. Vitals unremarkable. Exam with inducible symptoms with left gaze and horizontal nystagmus with left gaze. Symptoms consistent with exacerbation of his Mnire's disease. Will treat with meclizine and IV benzos, fluids and reassess. 02/25/18 11:59 Patient reports complete resolution of symptoms, ambulating in the ED with a steady gait, feels much better and requests discharge home. Advised to to f/u with Dr. Sweet within 1 week. I discussed the physical exam findings, ancillary test results and final diagnoses with the patient. I answered all of the patient's questions. The patient was satisfied with the care received and felt comfortable with the discharge plan and treatment plan. The patient will call their primary care physician within 24 hours to arrange follow-up and will return to the Emergency Department with any new, persistent or worsening symptoms.
== END 2018-02-25 12:10 | disposition home or self-care (01) ==
LOC: JER 08:06
PROC: 3E0337Z Introduction of Electrolytic and Water Balance Substance into Peripheral Vein, Percutaneous Approach (ICD-10-PCS; principal; 2018-02-25)
PROC: 3E033GC Introduction of Other Therapeutic Substance into Peripheral Vein, Percutaneous Approach (ICD-10-PCS; 2018-02-25)
PROC: 3E033NZ Introduction of Analgesics, Hypnotics, Sedatives into Peripheral Vein, Percutaneous Approach (ICD-10-PCS; 2018-02-25)
PROC: 3E033NZ Introduction of Analgesics, Hypnotics, Sedatives into Peripheral Vein, Percutaneous Approach (ICD-10-PCS; 2018-02-25)
DX: H81.12 Benign paroxysmal vertigo, left ear (principal); I10 Essential (primary) hypertension; J45.909 Unspecified asthma, uncomplicated; Z86.69 Personal history of other diseases of the nervous system and sense organs
CPT/HCPCS: 36415; 80053; 85025; 99284-25; J7030

== ENCOUNTER 2021-08-18 08:25 | Emergency (ER) | payer BC ==
[2021-08-18 08:36] VITALS: BP 132/85; PULSE 90; TEMP 97.7; BMI 34.9
[2021-08-18 10:06] LABS: BASO % 0.4 % (0-2.0); EOS % 0.6 % (0-4.5); HEMATOCRIT 44.5 % (35.4-49); HEMOGLOBIN 15.1 GM/dL (11.7-16.9); LYMPH % 11.7 % (8-40); MCH 29.6 pg (25.7-33.7); MEAN CELL VOLUME 86.9 fl (80-96); MEAN PLT VOLUME 6.6 fl (7.5-11.1); NEUT % 80.3 % (42.8-82.8); PLATELET COUNT 267 10^3/uL (134-434); RBC 5.12 M/mm3 (4.00-5.60); RDW 13.8 % (11.9-15.9); WHITE BLOOD COUNT 11.3 K/mm3 (4.0-10.0)
[2021-08-18 10:26] LABS: CALCIUM 8.9 mg/dL (8.5-10.1)
[2021-08-18 10:27] LABS: ALBUMIN 3.9 g/dl (3.4-5.0); BLOOD UREA NITROGEN 30.4 mg/dL (7-18); MAGNESIUM 2.2 mg/dL (1.8-2.4)
[2021-08-18 10:30] LABS: CREATININE 1.4 mg/dL (0.55-1.3)
[2021-08-18 10:31] LABS: BILIRUBIN,TOTAL 0.6 mg/dL (0.2-1)
== END 2021-08-18 12:56 ==
LOC: JER 08:25
DX: K42.9 Umbilical hernia without obstruction or gangrene (principal)
CPT/HCPCS: 36415; 74176-TC; 80053; 83605; 83690; 83735; 85025; 99284-25

== ENCOUNTER 2021-08-20 11:33 | Emergency (ER) | payer BC ==
[2021-08-20 11:39] VITALS: TEMP 97.7; BMI 34.9
[2021-08-20 12:27] VITALS: BP 139/98
[2021-08-20] MEDS ORDERED: ONDANSETRON *ODT* 4 MG TABLET SL ONE (12:30)
[2021-08-20] MEDS ORDERED: ONDANSETRON *ODT* 4 MG TABLET ONE (12:32)
[2021-08-20 12:36] VITALS: PULSE 93
== END 2021-08-20 13:01 | disposition home or self-care (01) ==
LOC: JER 11:33
DX: R11.0 Nausea (principal); K42.9 Umbilical hernia without obstruction or gangrene
CPT/HCPCS: 99283-25; Q0162

== ENCOUNTER 2021-10-23 04:30 | Day surgery (SDC) | payer BC ==
[2021-10-20 13:32] VITALS: BMI 39.2
[2021-10-23] MEDS ORDERED: MIDAZOLAM HCL 2 MG/2 ML SINGLE DOSE VIAL ONE ×2 (07:12)
[2021-10-23] MEDS ORDERED: BUPIVACAINE HCL/PF 0.5% (5MG/ML) 10 ML VIAL ONE (07:15)
[2021-10-23] MEDS ORDERED: BUPIVACAINE LIPOSOME/PF (EXPAREL) 266 MG/20 ML VIAL ONE (07:15)
[2021-10-23] MEDS ORDERED: PHENYLEPHRINE HCL 10 MG/1 ML SINGLE DOSE VIAL ONE (07:54)
[2021-10-23] MEDS ORDERED: fentaNYL CITRATE 250 MCG/5 ML VIAL ONE (07:54)
[2021-10-23] MEDS ORDERED: PROPOFOL 20 ML ONE ×2 (07:55→07:58)
[2021-10-23] MEDS ORDERED: ROCURONIUM BROMIDE 50 MG/5 ML SYRINGE ONE (07:58)
[2021-10-23] MEDS ORDERED: SUCCINYLCHOLINE CHLORIDE 200 MG/10 ML SYRINGE ONE (08:00)
[2021-10-23] MEDS ORDERED: ceFAZolin SODIUM 1 GM VIAL IVPB ONE (09:00)
[2021-10-23] MEDS ORDERED: HYDROmorphone HCl 2 MG/ML VIAL ONE (09:32)
[2021-10-23] MEDS ORDERED: NEOSTIGMINE METHYLSULFATE 0.5 MG/ML - 10 ML MDV ONE (10:25)
[2021-10-23] MEDS ORDERED: PROMETHAZINE HCL 25 MG/1 ML VIAL IVPUSH PRN (11:01)
[2021-10-23] MEDS ORDERED: ONDANSETRON 4 MG/2 ML VIAL IVPUSH PRN (11:01)
[2021-10-23] MEDS ORDERED: LACTATED RINGERS SOLUTION 1,000 ML IV SCH (11:15)
[2021-10-23] MEDS ORDERED: oxyCODONE HCL 5 MG TABLET PO PRN ×2 (12:38)
[2021-10-23] MEDS ORDERED: oxyCODONE HCL 10 MG SUSTAINED ACTING TABLET ONE (13:03)
[2021-10-23 14:41] VITALS: BP 142/84; PULSE 92; TEMP 97.5
== END 2021-10-23 14:30 | disposition home or self-care (01) ==
LOC: JASU-SURG 04:30
PROVIDERS: ATTEND Surgery
PROC: 8E0W4CZ Robotic Assisted Procedure of Trunk Region, Percutaneous Endoscopic Approach (ICD-10-PCS; 2021-10-23)
PROC: 0WUF4JZ Supplement Abdominal Wall with Synthetic Substitute, Percutaneous Endoscopic Approach (ICD-10-PCS; principal; 2021-10-23 08:00)
DX: K42.0 Umbilical hernia with obstruction, without gangrene (principal)
CPT/HCPCS: 49653; S2900; 94760

== ENCOUNTER 2021-11-30 04:34 | Day surgery (SDC) | payer BC ==
[2021-11-25 15:37] VITALS: BMI 40.4
[2021-11-30 09:40] VITALS: TEMP 97.4
[2021-11-30 10:49] VITALS: BP 131/88; PULSE 73
== END 2021-11-30 10:50 | disposition home or self-care (01) ==
LOC: JASU-ENDO 04:34
PROVIDERS: ATTEND Internal Medicine Gastroenterology
PROC: 0DB98ZX Excision of Duodenum, Via Natural or Artificial Opening Endoscopic, Diagnostic (ICD-10-PCS; 2021-11-30)
PROC: 0DB78ZX Excision of Stomach, Pylorus, Via Natural or Artificial Opening Endoscopic, Diagnostic (ICD-10-PCS; 2021-11-30)
PROC: 0DBP8ZX Excision of Rectum, Via Natural or Artificial Opening Endoscopic, Diagnostic (ICD-10-PCS; principal; 2021-11-30 09:00)
DX: Z12.11 Encounter for screening for malignant neoplasm of colon (principal); D12.8 Benign neoplasm of rectum; K57.30 Diverticulosis of large intestine without perforation or abscess without bleeding; K29.40 Chronic atrophic gastritis without bleeding; K21.00 Gastro-esophageal reflux disease with esophagitis, without bleeding; K44.9 Diaphragmatic hernia without obstruction or gangrene; I10 Essential (primary) hypertension; R10.13 Epigastric pain; R12 Heartburn
CPT/HCPCS: 88305-TC; 88342-TC

== ENCOUNTER 2022-01-03 11:29 | Emergency (ER) | payer BC ==
[2022-01-03 11:34] VITALS: BP 144/90; PULSE 85; TEMP 97.5; BMI 41.3
== END 2022-01-03 12:01 | disposition home or self-care (01) ==
LOC: JER 11:29
DX: R19.7 Diarrhea, unspecified (principal)
CPT/HCPCS: 99281-25

== ENCOUNTER 2022-06-18 11:53 | Emergency (ER) | payer BC ==
[2022-06-18 12:09] VITALS: BP 154/100; PULSE 99; RESP 20; TEMP 97.2; BMI 37.3
== END 2022-06-18 14:14 | disposition home or self-care (01) ==
LOC: JERFT 11:53
DX: M54.50 Low back pain, unspecified (principal); G89.29 Other chronic pain
CPT/HCPCS: 71046-TC-FY; 93005; 93010; 99284-25

== ENCOUNTER 2022-06-25 08:39 | Emergency (ER) | payer BC ==
[2022-06-25 08:50] VITALS: TEMP 97.6; BMI 38.3
[2022-06-25] MEDS ORDERED: ACETAMINOPHEN 1000 MG/100 ML BAG IVPB ONE (10:33)
[2022-06-25] MEDS ORDERED: FAMOTIDINE 20 MG/50 ML IVPB 20 MG/50 ML MG IVPB ONE ×2 (10:33→11:29)
[2022-06-25] MEDS ORDERED: MAG HYDROX/AL HYDROX/SIMETH 30 ML UNIT-DOSE CUP PO ONE (10:34)
[2022-06-25 10:50] LABS: BASO % 0.4 % (0-2.0); EOS % 0.5 % (0-4.5); HEMATOCRIT 44.3 % (35.4-49); LYMPH % 17.9 % (8-40); MCH 29.8 pg (25.7-33.7); MCHC 33.8 g/dl (32.0-35.9); MEAN CELL VOLUME 88.2 fl (80-96); MEAN PLT VOLUME 6.8 fl (7.5-11.1); MONO % 8.4 % (3.8-10.2); NEUT % 72.8 % (42.8-82.8); PLATELET COUNT 274 10^3/uL (134-434); RBC 5.03 M/mm3 (4.00-5.60); RDW 13.9 % (11.9-15.9); WHITE BLOOD COUNT 9.1 K/mm3 (4.0-10.0)
[2022-06-25 11:04] LABS: CHLORIDE 107 mmol/L (98-107); SODIUM 140 mmol/L (136-145)
[2022-06-25 11:06] LABS: BLOOD UREA NITROGEN 23.8 mg/dL (7-18); CALCIUM 9.4 mg/dL (8.5-10.1)
[2022-06-25 11:07] LABS: ALBUMIN 4.1 g/dl (3.4-5.0); ANION GAP 5 MMOL/L (8-16); CO2 28 mmol/L (21-32); GLUCOSE,RANDOM 101 mg/dL (74-106)
[2022-06-25 11:10] LABS: CREATININE 1.3 mg/dL (0.55-1.3); SGOT/AST 15 U/L (15-37); SGPT/ALT 31 U/L (13-61)
[2022-06-25 11:11] LABS: BILIRUBIN,TOTAL 0.2 mg/dL (0.2-1); TOT PROT 7.8 g/dl (6.4-8.2)
[2022-06-25 11:12] LABS: ALK PHOS 94 U/L (45-117)
[2022-06-25] MEDS ORDERED: MAG HYDROX/AL HYDROX/SIMETH 30 ML UNIT-DOSE CUP ONE (11:29)
[2022-06-25] MEDS ORDERED: ACETAMINOPHEN INJECTION 100 ML IVPB ONE (11:29)
[2022-06-25 13:19] VITALS: BP 130/95; PULSE 90; RESP 20
== END 2022-06-25 12:50 | disposition home or self-care (01) ==
LOC: JER 08:39
PROC: 3E033GC Introduction of Other Therapeutic Substance into Peripheral Vein, Percutaneous Approach (ICD-10-PCS; principal; 2022-06-25)
DX: R07.89 Other chest pain (principal); R06.09 Other forms of dyspnea
CPT/HCPCS: 36415; 71046-TC-FY; 80053; 84484; 85025; 93005; 93010; 99285-25

== ENCOUNTER 2022-10-22 09:22 | Emergency (ER) | payer OTHER ==
[2022-10-22 09:29] VITALS: BP 141/87; RESP 18; TEMP 97.6; BMI 35.9
[2022-10-22 10:43] LABS: URINE APPEARANCE CLEAR; URINE BILIRUBIN NEGATIVE (NEGATIVE); URINE COLOR YELLOW; URINE GLUCOSE (UA) NEGATIVE (NEGATIVE); URINE KETONE NEGATIVE (NEGATIVE); URINE LEUK ESTERASE NEGATIVE (NEGATIVE); URINE NITRITE NEGATIVE (NEGATIVE); URINE PROTEIN NEGATIVE (NEGATIVE); URINE UROBILINOGEN 0.2 mg/dL (0.2-1.0)
[2022-10-22] MEDS ORDERED: ACETAMINOPHEN INJECTION 100 ML IVPB ONE (11:05)
[2022-10-22 11:07] VITALS: PULSE 92
== END 2022-10-22 11:08 | disposition home or self-care (01) ==
LOC: JER 09:22
DX: R35.0 Frequency of micturition (principal)
CPT/HCPCS: 81003; 82962; 87086; 87186; 99283-25

== ENCOUNTER 2022-10-30 08:36 | Emergency (ER) | payer OTHER ==
[2022-10-30 08:49] VITALS: PULSE 99; RESP 18; TEMP 98.1; BMI 39.1
[2022-10-30 08:51] VITALS: BP 146/97
== END 2022-10-30 11:50 | disposition home or self-care (01) ==
LOC: JER 08:36
DX: R53.1 Weakness (principal)
CPT/HCPCS: 0241U-QW; 99283-25

== ENCOUNTER 2022-11-08 12:03 | Emergency (ER) | payer OTHER ==
[2022-11-08 12:16] VITALS: BP 156/76; PULSE 104; RESP 20; TEMP 98.5; BMI 39.1
== END 2022-11-08 13:00 | disposition home or self-care (01) ==
LOC: JER 12:03 → JERFT 12:03
DX: N30.00 Acute cystitis without hematuria (principal)
CPT/HCPCS: 99283-25

== ENCOUNTER 2022-11-11 09:21 | Observation (INO) | payer BC, OTHER ==
[2022-11-11 09:34] VITALS: BMI 35.9
[2022-11-11 10:45] LABS: URINE APPEARANCE CLOUDY; URINE BILIRUBIN NEGATIVE (NEGATIVE); URINE COLOR YELLOW; URINE GLUCOSE (UA) NEGATIVE (NEGATIVE); URINE KETONE NEGATIVE (NEGATIVE); URINE LEUK ESTERASE NEGATIVE (NEGATIVE); URINE NITRITE NEGATIVE (NEGATIVE); URINE PROTEIN NEGATIVE (NEGATIVE); URINE UROBILINOGEN 0.2 mg/dL (0.2-1.0)
[2022-11-11 10:47] LABS: BASO % 0.3 % (0-2.0); EOS % 0.9 % (0-4.5); HEMATOCRIT 44.3 % (35.4-49); HEMOGLOBIN 14.9 GM/dL (11.7-16.9); LYMPH % 16.7 % (8-40); MCH 30.6 pg (25.7-33.7); MCHC 33.6 g/dl (32.0-35.9); MEAN PLT VOLUME 6.5 fl (7.5-11.1); MONO % 7.3 % (3.8-10.2); NEUT % 74.8 % (42.8-82.8); PLATELET COUNT 274 10^3/uL (134-434); RBC 4.87 M/mm3 (4.00-5.60); RDW 14.3 % (11.9-15.9); WHITE BLOOD COUNT 8.7 K/mm3 (4.0-10.0)
[2022-11-11 11:07] LABS: CALCIUM 9.1 mg/dL (8.5-10.1)
[2022-11-11 11:09] LABS: BLOOD UREA NITROGEN 26.9 mg/dL (7-18)
[2022-11-11 11:12] LABS: CREATININE 1.4 mg/dL (0.55-1.3)
[2022-11-11 11:13] LABS: BILIRUBIN,TOTAL 0.3 mg/dL (0.2-1); TOT PROT 7.7 g/dl (6.4-8.2)
[2022-11-11] MEDS ORDERED: MECLIZINE HCL 25 MG TABLET (FP) PO PRN (13:42)
[2022-11-11 15:10] LABS: N-TERMINAL BNP 23.4 pg/ml (5-125)
[2022-11-11 15:28] VITALS: TEMP 97.1
[2022-11-11 18:44] VITALS: BP 123/87; PULSE 104; RESP 20
[2022-11-11] MEDS ORDERED: VALSARTAN 80 MG TABLET PO SCH (22:00)
[2022-11-12] MEDS ORDERED: FAMOTIDINE 20 MG TABLET PO SCH (10:00)
[2022-11-12] MEDS ORDERED: HYDROCHLOROTHIAZIDE 25 MG TABLET (FP) PO SCH (10:00)
[2022-11-12] MEDS ORDERED: TOPIRAMATE 25 MG TABLET PO SCH (10:00)
== END 2022-11-11 19:17 | disposition home or self-care (01) ==
LOC: JER 09:21 → JERBED 13:44
PROVIDERS: ADMIT Internal Medicine; ATTEND Internal Medicine
DX: I20.8 Other forms of angina pectoris (principal); K21.9 Gastro-esophageal reflux disease without esophagitis; E66.8 Other obesity; Z68.35 Body mass index [BMI] 35.0-35.9, adult
CPT/HCPCS: 0241U-QW; 36415; 71046-TC-FY; 80053; 80061; 81003; 83036; 83690; 83880; 84443; 84484; 85025; 87086; 93005; 93010; 93306-TC; 99285-25; G0378

== ENCOUNTER 2023-02-23 10:16 | Emergency (ER) | payer BC ==
[2023-02-23 10:30] VITALS: TEMP 97.8; BMI 38.1
[2023-02-23 13:46] VITALS: BP 140/72; PULSE 86; RESP 18
== END 2023-02-23 13:46 | disposition home or self-care (01) ==
LOC: JER 10:16
DX: R10.32 Left lower quadrant pain (principal); K42.9 Umbilical hernia without obstruction or gangrene; X50.0XXA Overexertion from strenuous movement or load, initial encounter
CPT/HCPCS: 74176-TC; 99284-25

== ENCOUNTER 2023-10-10 08:18 | Emergency (ER) | payer BC ==
[2023-10-10 08:27] VITALS: BP 149/82; PULSE 63; RESP 18; TEMP 97.7; BMI 38.0
[2023-10-10 10:13] LABS: BASO % 0.4 % (0-2.0); EOS % 0.8 % (0-4.5); HEMATOCRIT 43.8 % (35.4-49); HEMOGLOBIN 14.6 GM/dL (11.7-16.9); LYMPH % 13.9 % (8-40); MCH 29.9 pg (25.7-33.7); MCHC 33.4 g/dl (32.0-35.9); MEAN CELL VOLUME 89.5 fl (80-96); MEAN PLT VOLUME 6.4 fl (7.5-11.1); MONO % 6.9 % (3.8-10.2); PLATELET COUNT 261 10^3/uL (134-434); RBC 4.89 M/mm3 (4.00-5.60); RDW 13.5 % (11.9-15.9); WHITE BLOOD COUNT 10.9 K/mm3 (4.0-10.0)
[2023-10-10 10:41] LABS: POTASSIUM 3.9 mmol/L (3.5-5.1)
[2023-10-10 10:43] LABS: BLOOD UREA NITROGEN 29.6 mg/dL (7-18); CALCIUM 9.3 mg/dL (8.5-10.1)
[2023-10-10 10:44] LABS: ALBUMIN 3.9 g/dl (3.4-5.0)
[2023-10-10 10:47] LABS: CREATININE 1.3 mg/dL (0.55-1.3)
[2023-10-10 10:48] LABS: BILIRUBIN,TOTAL 0.2 mg/dL (0.2-1); TOT PROT 7.9 g/dl (6.4-8.2)
== END 2023-10-10 10:25 | disposition home or self-care (01) ==
LOC: JER 08:18
DX: R10.9 Unspecified abdominal pain (principal); K42.9 Umbilical hernia without obstruction or gangrene
CPT/HCPCS: 36415; 80053; 85025; 99283-25

== ENCOUNTER 2024-04-27 04:41 | Day surgery (SDC) | payer OTHER, BC ==
[2024-04-24 14:07] VITALS: BMI 38.0
[2024-04-27] MEDS ORDERED: LACTATED RINGERS SOLUTION 1,000 ML IV SCH (08:30)
[2024-04-27] MEDS ORDERED: oxyCODONE HCL 5 MG TABLET PO PRN ×2 (08:30)
[2024-04-27] MEDS ORDERED: ONDANSETRON 4 MG/2 ML VIAL IVPUSH PRN (08:30)
[2024-04-27] MEDS ORDERED: ONDANSETRON 4 MG/2 ML VIAL ONE (09:42)
[2024-04-27] MEDS ORDERED: LIDOCAINE HCL/PF 2% SDV 5ML VIAL ONE (09:42)
[2024-04-27] MEDS ORDERED: METOCLOPRAMIDE HCL INJECTION 10 MG/2 ML VIAL ONE (09:42)
[2024-04-27] MEDS ORDERED: ceFAZolin SODIUM 1 GM VIAL ONE (09:42)
[2024-04-27] MEDS ORDERED: DEXAMETHASONE SOD PHOSPHATE 4 MG/1 ML VIAL ONE (09:42)
[2024-04-27] MEDS ORDERED: ACETAMINOPHEN INJECTION 100 ML IVPB ONE (09:43)
[2024-04-27] MEDS ORDERED: MIDAZOLAM HCL 2 MG/2 ML SINGLE DOSE VIAL ONE (09:49)
[2024-04-27] MEDS ORDERED: PROPOFOL 20 ML ONE (09:50)
[2024-04-27] MEDS ORDERED: BUPIVACAINE HCL/PF 0.5% (5MG/ML) 10 ML VIAL ONE (12:36)
[2024-04-27] MEDS: ceFAZolin SODIUM 1 GM VIAL IVPB ONE (12:45)
[2024-04-27] MEDS ORDERED: GLYCOPYRROLATE 0.2 MG/1 ML VIAL ONE (13:03)
[2024-04-27] MEDS ORDERED: HYDROmorphone HCl 2 MG/ML VIAL ONE (13:04)
[2024-04-27] MEDS: BUPIVACAINE HCL/PF 0.5% (5MG/ML) 10 ML VIAL IJ ONE (13:06)
[2024-04-27] MEDS ORDERED: ROCURONIUM BROMIDE 50 MG/5 ML SYRINGE ONE (13:45)
[2024-04-27] MEDS ORDERED: SUGAMMADEX SODIUM 200 MG/2 ML VIAL ONE (14:46)
[2024-04-27 17:00] VITALS: RESP 22
[2024-04-27 18:23] VITALS: BP 126/77; PULSE 82; TEMP 97.5
== END 2024-04-27 18:31 | disposition home or self-care (01) ==
LOC: JASU-SURG 04:41
PROVIDERS: ATTEND Surgery
PROC: 8E0W4CZ Robotic Assisted Procedure of Trunk Region, Percutaneous Endoscopic Approach (ICD-10-PCS; 2024-04-27)
PROC: 0YU64JZ Supplement Left Inguinal Region with Synthetic Substitute, Percutaneous Endoscopic Approach (ICD-10-PCS; principal; 2024-04-27 10:30)
DX: K40.90 Unilateral inguinal hernia, without obstruction or gangrene, not specified as recurrent (principal)
CPT/HCPCS: 49650; S2900; 94760; C1781; J0131

== ENCOUNTER 2024-07-31 14:56 | Emergency (ER) | payer OTHER, BC ==
[2024-07-31 15:06] VITALS: BP 141/89; PULSE 99; RESP 18; TEMP 98.2; BMI 36.9
[2024-07-31] MEDS ORDERED: FAMOTIDINE 20 MG TABLET ONE (16:12)
[2024-07-31] MEDS ORDERED: MAG HYDROX/AL HYDROX/SIMETH 30 ML UNIT-DOSE CUP ONE (16:12)
[2024-07-31] MEDS: MAG HYDROX/AL HYDROX/SIMETH -MYLANTA- ORAL SUSPENSION PO ONE (16:27)
[2024-07-31] MEDS: FAMOTIDINE 20 MG TABLET PO ONE (16:27)
== END 2024-07-31 16:59 | disposition home or self-care (01) ==
LOC: JER 14:56
DX: K29.50 Unspecified chronic gastritis without bleeding (principal); R10.13 Epigastric pain; R14.0 Abdominal distension (gaseous)
CPT/HCPCS: 93005; 93010; 99283-25

== ENCOUNTER 2024-08-04 05:52 | Emergency (ER) | payer OTHER, BC ==
[2024-08-04 06:01] VITALS: BP 133/90; PULSE 96; RESP 18; TEMP 97.9; BMI 39.0
[2024-08-04 07:43] LABS: BASO % 0.3 % (0-2.0); EOS % 0.8 % (0-4.5); HEMATOCRIT 41.7 % (35.4-49); LYMPH % 18.1 % (8-40); MCH 30.2 pg (25.7-33.7); MCHC 33.5 g/dl (32.0-35.9); MEAN CELL VOLUME 90.2 fl (80-96); MEAN PLT VOLUME 6.7 fl (7.5-11.1); MONO % 6.9 % (3.8-10.2); NEUT % 73.9 % (42.8-82.8); PLATELET COUNT 279 10^3/uL (134-434); RBC 4.62 M/mm3 (4.00-5.60); RDW 13.9 % (11.9-15.9)
[2024-08-04 08:03] LABS: POTASSIUM 3.8 mmol/L (3.5-5.1)
[2024-08-04 08:05] LABS: BLOOD UREA NITROGEN 27.2 mg/dL (7-18); CALCIUM 8.9 mg/dL (8.5-10.1)
[2024-08-04 08:09] LABS: CREATININE 1.2 mg/dL (0.55-1.3)
[2024-08-04 08:10] LABS: BILIRUBIN,TOTAL 0.4 mg/dL (0.2-1); TOT PROT 7.5 g/dl (6.4-8.2)
[2024-08-04 11:41] LABS: URINE APPEARANCE CLEAR; URINE BILIRUBIN NEGATIVE (NEGATIVE); URINE COLOR YELLOW; URINE GLUCOSE (UA) NEGATIVE (NEGATIVE); URINE KETONE NEGATIVE (NEGATIVE); URINE PROTEIN NEGATIVE (NEGATIVE); URINE UROBILINOGEN 0.2 mg/dL (0.2-1.0)
[2024-08-04 11:42] LABS: URINE LEUK ESTERASE NEGATIVE (NEGATIVE); URINE NITRITE NEGATIVE (NEGATIVE)
== END 2024-08-04 12:27 | disposition home or self-care (01) ==
LOC: JER 05:52
DX: M54.2 Cervicalgia (principal)
CPT/HCPCS: 36415; 74177-TC; 80053; 81003; 83690; 85025; 87086; 99285-25

== ENCOUNTER 2025-01-25 05:33 | Day surgery (SDC) | payer OTHER, BC ==
[2025-01-17 12:24] VITALS: BMI 40.7
[2025-01-25 12:17] VITALS: TEMP 98.9
[2025-01-25 16:20] VITALS: BP 101/75; PULSE 81; RESP 20
[2025-01-25] MEDS ORDERED: PANTOPRAZOLE SOD 40 MG SUSPENSION PACKET PO SCH (22:00)
== END 2025-01-25 13:10 | disposition home or self-care (01) ==
LOC: JASU-ENDO 05:33
PROVIDERS: ATTEND Internal Medicine Gastroenterology
PROC: 0DB78ZX Excision of Stomach, Pylorus, Via Natural or Artificial Opening Endoscopic, Diagnostic (ICD-10-PCS; 2025-01-25)
PROC: 0DB68ZX Excision of Stomach, Via Natural or Artificial Opening Endoscopic, Diagnostic (ICD-10-PCS; 2025-01-25)
PROC: 0DB48ZX Excision of Esophagogastric Junction, Via Natural or Artificial Opening Endoscopic, Diagnostic (ICD-10-PCS; principal; 2025-01-25 12:00)
DX: K21.00 Gastro-esophageal reflux disease with esophagitis, without bleeding (principal); K44.9 Diaphragmatic hernia without obstruction or gangrene; K22.2 Esophageal obstruction; K22.70 Barrett's esophagus without dysplasia; K29.50 Unspecified chronic gastritis without bleeding
CPT/HCPCS: 88305-TC; 88342-TC